=== PATIENT | male | born 1965 | race African-American/Black ===

== ENCOUNTER 2021-12-10 08:53 | Day surgery (SDC) | payer OTHER, SELFPAY ==
--- NOTE | 2021-12-10 09:32 | HO.ANESPROP2 ---
HPI - Anesthesia Eval Consult details Narrative: 56 Male for EGD and colonoscopy LYNNETTE uses CPAP [facility] Past Medical History Medical History GERD (gastroesophageal reflux disease) Prediabetes Seasonal allergies Functional capacity: independent ambulation Family History Family history of problems with anesthesia: No Surgical History Surgical History Hx of colonoscopy History of Problems with Anesthesia: No Social History Social History Patient Tobacco Use Status: Never used Tobacco Use of substances other than those prescribed or required for medical reasons: No Are you DNR?: No Advance Directives: No Advance Directives Information Provided: Yes Meds Allergies Allergy/AdvReac Type Severity Reaction Status Date / Time No Known Allergies Allergy Verified 12/10/21 09:53 Home Medications Medication Instructions Recorded Confirmed Last Taken Type cholecalciferol (vitamin D3) 25 25 mcg PO DAILY 12/02/21 12/02/21 Unknown History mcg (1,000 unit) capsule (Vitamin D3) omeprazole 20 mg capsule,delayed 20 mg PO DAILY 12/02/21 12/02/21 Unknown History release Exam Exam Date and Time: December 10, 2021 0932 Airway Mallampati Class: III TM Dist: >3cm Neck ROM: Full Loose/Missing/Broken Teeth: Yes (Few missing , ) Heart: S1 S2 Lungs: b/l breath sounds Assessment and Plan Assessment Anesthesia Assessment: Anesthesia Plan Discussed Final Anesthetic Review Family History of Problems with Anesthesia: No History of Problems with Anesthesia: No NPO: Yes ASA Class: II Final Preanesthetic Review: No Changes in Pt Med Stat, Meds/Allgs Chart Reviewed, Consent Obtained/Reviewed and Anes Risks/Benef Reviewed Patient Risk: High Procedure Risk: Intermediate Anesthetic Plan Anesthetic Plan: MAC: Disposition: Standard PACU
[2021-12-10 09:42] VITALS: BP 149/86; PULSE 90; RESP 18; TEMP 36.8; O2SAT 97; BMI 34.9
[2021-12-10] MEDS: Lactated Ringers 1,000 ML 80 ML IVCONT (09:51)
[2021-12-10 11:51] VITALS: BP 113/57; PULSE 87; RESP 19; TEMP 36.7; O2SAT 88
[2021-12-10 11:52] VITALS: RESP 18; O2SAT 98
--- NOTE | 2021-12-10 11:52 | PM.OP ---
Brief Operative Note Date of Service: 12/10/21 Pre-op diagnosis: GERD, Screening Post-op diagnosis: other (Hiatal hernia, Colon polyp) Procedure: EGD with biopsies, Colonoscopy to the cecum with hot snare polypectomy Surgeon: oJrden Antunez Anesthesia: MAC Was an Paper Cone Grader used for this Procedure?: No Estimated blood loss (mL): 2.0 Pathology: other (A. Polyp at 20cm B. EG Junction at 39cm) Condition: stable Disposition: PACU
[2021-12-10 12:07] VITALS: BP 130/75; PULSE 87; RESP 18; TEMP 36.3; O2SAT 93
[2021-12-10 12:20] VITALS: BP 133/82; PULSE 79; RESP 16; O2SAT 96
[2021-12-10 12:35] VITALS: BP 134/87; PULSE 74; RESP 18; TEMP 36.3; O2SAT 97
--- NOTE | 2021-12-10 13:34 | PC.NURSE ---
Pt unable to obtain his photo ID at this time. Pt has spent last 45 mins trying to get it. Pt states will send a pic of ID when he gets home. Pt brought to [place] area
--- NOTE | 2021-12-10 13:53 | PC.NURSE ---
THIS RN WAS TOLD THAT PATIENT IS TO CALL THE [employer]UD MILL TENDER, MIKAELA MESSER ONCE HOME TO MAKE SURE HIS NAME GETS CORRECTED IN THE SYSTEM. THIS RN WAS REPORTED TO BY YOGA COORDINATORDelfina.
--- NOTE | 2021-12-10 20:41 | OP_ITS ---
SURGEON: Jorden Antunez MD INDICATIONS: The patient presents for evaluation of colorectal cancer screening and gastroesophageal reflux. Full consent was obtained from him for both procedures, including risks of bleeding and perforation. PREOPERATIVE DIAGNOSIS: POSTOPERATIVE DIAGNOSIS: PROCEDURE PERFORMED: Esophagogastroduodenoscopy with biopsies, and colonoscopy to the cecum with hot snare polypectomy. ESTIMATED BLOOD LOSS: COMPLICATIONS: ANESTHESIA: Monitored anesthesia care. ASSISTANTS: SPECIMENS: PREOPERATIVE DIAGNOSES: Gastroesophageal reflux and colorectal cancer screening. POSTOPERATIVE DIAGNOSES: Gastroesophageal reflux and colorectal cancer screening, small colon polyp, small hiatal hernia, rule out Chaudhary esophagus, diverticulosis and internal hemorrhoids. DESCRIPTION OF PROCEDURE: The patient was placed in the left lateral decubitus position. The digital rectal exam revealed no abnormalities. The Olympus video pediatric colonoscope was entered into the rectum and advanced easily to the cecum. Once in the cecum, I did identify normal-appearing cecal pouch with appendiceal orifice and a normal-appearing ileocecal valve. There was transillumination of light deep in the right lower quadrant. The entire cecum and ileocecal valve appeared normal. The scope was slowly withdrawn assessing all mucosal surfaces carefully. Preparation was excellent. At 20 cm was an approximately 6 mm grossly adenomatous polyp, which was removed with hot snare polypectomy and recovered by suction. The polypectomy site appeared clean, without any sign of residual polyp nor bleeding. I did not visualize any other polyps, colitis, or angiodysplasia. There was a mild amount of sigmoid diverticulosis. In the rectum, scope was retroflexed visualizing some small internal hemorrhoids, but no other pathology. The rectal mucosa appeared normal. The scope was straightened and withdrawn from the patient. He was turned around for the upper endoscopy. The Olympus video gastroscope was passed in the posterior oropharynx and upper esophagus under direct vision. The scope was passed slowly to the distal esophagus. The gastroesophageal junction appeared at 39 cm. There was some slight irregularity consistent with reflux and possible small areas of Chaudhary mucosa, but no evidence of esophagitis nor any mass. The scope entered into the stomach. There was a small hiatal hernia. The scope was advanced to pylorus and the duodenum was cannulated to the descending portion. The duodenum including the bulb appeared normal without mass or ulceration. The scope was withdrawn back into the stomach. The gastric antrum and body appeared normal with good peristalsis. The scope was retroflexed visualizing the proximal stomach carefully, which appeared normal, without any sign of mass or ulceration. The scope was straightened and withdrawn back from the esophagus. Biopsies were obtained at the EG junction at 39 cm. Proximal to that, the esophageal mucosa appeared normal. The scope was withdrawn from the patient. He tolerated both procedures well and was returned to recovery area in stable condition. IMPRESSION: 1. Small hiatal hernia, gastroesophageal reflux, rule out Chaudhary's esophagus. 2. Colon polyp. 3. Diverticulosis. 4. Internal hemorrhoids. PLAN: The results of the Pathology will be checked. If the colon polyp is a tubular adenoma I would recommend a followup colonoscopy in 5 years. If it is only hyperplastic, I would recommend a followup colonoscopy in 10 years. He was advised not to use any aspirin and NSAIDs for 1 week. He will continue his daily omeprazole for relief of reflux. If there is evidence of Chaudhary's esophagus, he would then need a surveillance upper endoscopy as well. MD ASHLEY Mahmood/LEO / [id number] TORREY
== END 2021-12-10 13:55 | disposition home or self-care (01) ==
PROVIDERS: Visit Provider Internal Medicine
PROC: (CPT 45385; principal; 2021-12-10 10:10)
DX: Z12.11 Encounter for screening for malignant neoplasm of colon (principal); D12.5 Benign neoplasm of sigmoid colon; K57.30 Diverticulosis of large intestine without perforation or abscess without bleeding; K64.8 Other hemorrhoids; K21.9 Gastro-esophageal reflux disease without esophagitis; K44.9 Diaphragmatic hernia without obstruction or gangrene; R73.03 Prediabetes; J30.2 Other seasonal allergic rhinitis; Z79.899 Other long term (current) drug therapy
CPT/HCPCS: 45385; 43239; 88305; J3010